=== PATIENT | male | born 1985 | race Caucasian/White ===

== ENCOUNTER 2017-07-27 15:48 | Emergency (ER) | payer OTHER ==
[2017-07-27] MEDS ORDERED: Diphtheria,Pertussis(Acell),Tetanus Vaccine 0.5 ML Syringe IM ONE (16:01)
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
[2017-07-27 17:35] VITALS: BP 111/77
== END 2017-07-27 17:22 | disposition home or self-care (01) ==
LOC: MW.ED 15:48
DX: S09.90XA Unspecified injury of head, initial encounter (principal); F17.210 Nicotine dependence, cigarettes, uncomplicated; Z88.5 Allergy status to narcotic agent; Z23 Encounter for immunization; V59.49XA Driver of pick-up truck or van injured in collision with other motor vehicles in traffic accident, initial encounter
CPT/HCPCS: 70450; 70450-26; 90471; 90715; 99283; 99284-25

== ENCOUNTER 2021-09-13 22:17 | Emergency (ER) | payer BC, OTHER ==
[2021-09-13] MEDS ORDERED: Sodium Chloride 0.9% 10 ML Syringe FLUSH PRN (22:18)
[2021-09-13] MEDS ORDERED: Sodium Chloride 0.9% 2.5 ML Syringe FLUSH PRN (22:18)
[2021-09-13] MEDS ORDERED: Lactated Ringers 1,000 ML IV STA (22:50)
[2021-09-13] MEDS ORDERED: Ketorolac 30 MG/ML SDV IVPUSH ONE (22:50)
[2021-09-13] MEDS ORDERED: Morphine 4 MG/ML VIAL IVPUSH ONE (22:50)
[2021-09-13 23:15] LABS: BLOOD UREA NITROGEN,BUN 13 mg/dL (7.0-18.0); CARBON DIOXIDE,CO2 22.8 mmol/L (21.0-32.0); CHLORIDE,CL 103 mmol/L (98-107); GLUCOSE RANDOM 143 mg/dL (74-106); LIPASE 60 U/L (73-393); POTASSIUM,K 3.6 mmol/L (3.5-5.1); SODIUM,NA 141 mmol/L (136-148)
--- NOTE | 2021-09-14 00:14 | CT ---
Indication: Right lower quadrant pain, history of stones Technique: Nonenhanced axial CT imaging through the abdomen and pelvis. Sagittal and coronal reconstructions are provided. Comparison: None Findings: There is a 6 mm irregular stone at the right ureteral vesicle junction. Mild hydroureteronephrosis and renal edema are consistent with urinary obstruction. At least three additional punctate nonobstructing stones are noted in the right renal collecting system. No renal stones are seen on the left. The left kidney is unremarkable. There is diffuse thickening of the urinary bladder wall. There is unremarkable noncontrast appearance of the liver, gallbladder, spleen, pancreas, and adrenal glands. There is normal caliber of the abdominal aorta. There is no abdominal lymphadenopathy. The stomach and duodenum are unremarkable. There is normal caliber of the small bowel. The appendix is noninflamed. A 3 mm metallic density is noted in the appendiceal lumen. There is no colonic wall thickening or mesenteric edema. Instrumented posterior spinal fusion is noted at L4-5 and L5-S1. The surgical hardware appears intact. Mature osseous fusion is noted across the disc spaces. The included lung bases are clear. Impression: 1. A 6 mm obstructing stone at the right ureterovesical junction. Mild hydroureteronephrosis and renal edema. 2. Additional punctate nonobstructing stones in the right renal collecting system. 3. Urinary bladder wall thickening. Correlate with urinalysis to exclude cystitis. 4. Incidental 3 mm metallic fragment in the appendix, unclear of ingested or postsurgical. Correlate clinically. Please note that all CT scans at this facility use dose modulation, iterative reconstruction, and/or weight-based dosing when appropriate to reduce radiation dose to as low as reasonably achievable. Dictated by Soraya Montanez MD @ 09/14/2021 12:12:41 AM (Electronically Signed)
[2021-09-14] MEDS ORDERED: traMADol 50 MG Tab PO ONE (02:20)
[2021-09-14] MEDS ORDERED: Tamsulosin 0.4 MG Cap.ER PO ONE (02:20)
--- NOTE | 2021-09-14 02:23 | EDM.PDOC ---
ED HPI GENERAL MEDICAL PROBLEM - General Chief Complaint: Abdominal Pain Stated Complaint: RT SIDE PAIN Time Seen by Provider: 09/13/21 22:38 - History of Present Illness INITIAL COMMENTS - FREE TEXT/NARRATIVE: CHIEF COMPLAINT(S): Abdominal pain HISTORY OF PRESENT ILLNESS: This is a 35-year-old man with a prior history of nephrolithiasis who comes to the emergency department with a chief complaint of abdominal pain. The patient states that prior to arrival he started to experience sudden onset right lower quadrant abdominal pain which he describes as sharp and rated 10 out of 10. He denies any back pain, dysuria or hematuria. He states he has a history of kidney stones but he is always had pain in his back and today he does not. He states that he has had some nausea and vomiting which was nonbloody and nonbilious. He denies any penile discharge or testicular pain. He states that he has never had this pain before. He does not have any relieving or aggravating factors. He denies any fevers or chills REVIEW OF SYSTEMS: Constitutional: Denies fever, chills. Eyes: Denies eye pain Ears, Nose, Mouth, & Throat: Denies earache Cardiovascular: Denies chest pain Respiratory: Denies shortness of breath Gastrointestinal: Positive for right lower quadrant abdominal pain. Denies diarrhea, hematochezia, melena, hematemesis, bilious emesis Genitourinary: Denies hematuria, dysuria, penile discharge, testicular pain Skin:Denies a rash MSK: Denies joint pain Neurological: Denies blurred vision Psychiatric: Denies depression PAST MEDICAL HISTORY: As per history of present illness and as reviewed below otherwise noncontributory. SURGICAL HISTORY: As per history of present illness and as reviewed below otherwise noncontributory. SOCIAL HISTORY: As per history of present illness and as reviewed below otherwise noncontributory. FAMILY HISTORY: As per history of present illness and as reviewed below otherwise noncontributory. EXAMINATION OF ORGAN SYSTEMS/BODY AREAS: Constitutional: Blood pressure is 123/88, heart rate 87, respiratory 20 with an oxygen saturation 96% on room air. Temperature 36.2 General: Young man who does appear to be in a moderate amount of pain who is unable to sit still Psychiatric: Appropriate mood and affect. Eyes: No scleral icterus or conjunctival erythema ENMT: Moist mucous membranes. No pharyngeal erythema Cardiovascular: Regular, rate, and rhythm. No gallops, murmurs, or rubs. Bilateral upper extremity pulses symmetric and intact. No peripheral edema. No JVD. Respiratory: Lungs clear to auscultation bilaterally. No wheezes, rales, or rhonchi. Gastrointestinal: Soft, nondistended, mild tenderness to palpation the right lower quadrant and suprapubic region. No rebound or guarding. Negative Galvan's and McBurney's. Normoactive bowel sounds Genitourinary: Mild suprapubic tenderness. No CVA tenderness Musculoskeletal: Normal range of motion. Skin: No lesions or abrasions. Neurological: Alert, GCS 15 MEDICAL DECISION MAKING AND COURSE IN THE ED WITH INTERPRETATION/REVIEW OF DIAGNOSTIC STUDIES: This is a 35-year-old man with a past medical history of nephrolithiasis who comes to the emergency department with sudden onset severe pain in the right lower quadrant who has evidence of suprapubic and right lower quadrant tenderness who is afebrile with otherwise normal vital signs. At this time I do suspect another kidney stone however differential does include appendicitis. Will obtain CT abdomen pelvis for further evaluation. We will provide the patient with Toradol, morphine and 1 L of lactated Ringer's bolus. Obtain labs including CBC, CMP, lipase and urinalysis. Given the possibility of surgical intervention we will obtain Covid swab even though the patient does not have any symptoms. The patient was amenable to this plan DDx: Nephrolithiasis, appendicitis Laboratory: CBC reveals a leukocytosis of 12.62 with normal indices. CMP is unremarkable. Lipase is normal. Urinalysis reveals hematuria otherwise unremarkable. COVID is negative. The radiological images were viewed by myself along with reading the report from the radiologist. CT abdomen pelvis without contrast reveals a 6 mm obstructing stone in the right UVJ with mild hydroureter nephrosis and renal edema. There are additional punctate nonobstructing stones in the right renal collecting system. There is urinary bladder wall thickening. There is a incidental 3 mm metallic fragment in the appendix unclear if ingested or post surgical. On reevaluation patient's pain was improved and patient was able to tolerate p.o. I did discuss the results with the patient at this time. In addition I did inquire about the metallic foreign body index. Patient states that he is never had surgery of the appendix and did not ingest any metallic fragment. Therefore as I I did discuss with him strict return precautions. I discussed the need to follow-up with urology within 1 week. He was amenable to discharge at this time and had no further questions DISPOSITION: The patient was discharged home in stable condition. The patient will follow up with neurology this week CONDITION: Fair PROCEDURES: None FINAL IMPRESSION(S)/DIAGNOSES: 1. Acute right obstructing nephrolithiasis 2. Acute foreign body appendix Benedicto Okeefe M.D. 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 Psychiatric History: Reports: None - Infectious Disease History Infectious Disease History: Reports: Chicken Pox - Past Surgical History Other Musculoskeletal Surgeries/Procedures:: back surgery 5 years ago Social & Family History - Family History Family Medical History: No Pertinent Family History - Tobacco Use Second Hand Smoke Exposure: No - Caffeine Use Caffeine Use: Reports: None - Recreational Drug Use Recreational Drug Use: No ED ROS GENERAL - Review of Systems Review Of Systems: See Below ED EXAM, GENERAL - Physical Exam Exam: See Below Course - Vital Signs Last Recorded V/S: Last Vital Signs Temp 36.2 C 09/13/21 22:44 Pulse 62 09/14/21 02:26 Resp 14 09/14/21 02:26 BP 115/81 09/14/21 02:26 Pulse Ox 97 09/14/21 02:26 - Orders/Labs/Meds Labs: Laboratory Tests 09/13/21 09/13/21 09/13/21 Range/Units 22:50 22:50 22:50 WBC 12.62 H (4.0-11.0) K/uL RBC 4.76 (4.50-5.90) M/uL Hgb 15.8 (13.0-17.0) g/dL Hct 44.6 (38.0-50.0) % MCV 93.7 (80.0-98.0) fL MCH 33.2 H (27.0-32.0) pg MCHC 35.4 (31.0-37.0) g/dL RDW Std Deviation 42.1 (28.0-62.0) fl RDW Coeff of Arthur 12 (11.0-15.0) % Plt Count 282 (150-400) K/uL MPV 11.20 (7.40-12.00) fL Neut % (Auto) 62.3 (48.0-80.0) % Lymph % (Auto) 26.2 (16.0-40.0) % [place] % (Auto) 8.9 (0.0-15.0) % Eos % (Auto) 2.0 (0.0-7.0) % Baso % (Auto) 0.6 (0.0-1.5) % Neut # (Auto) 7.9 H (1.4-5.7) K/uL Lymph # (Auto) 3.3 H (0.6-2.4) K/uL Gall[place] # (Auto) 1.1 H (0.0-0.8) K/uL Eos # (Auto) 0.3 (0.0-0.7) K/uL Baso # (Auto) 0.1 (0.0-0.1) K/uL Nucleated RBC % 0.0 /100WBC Nucleated RBCs # 0 K/uL Sodium 141 (136-148) mmol/L Potassium 3.6 (3.5-5.1) mmol/L Chloride 103 (98-107) mmol/L Carbon Dioxide 22.8 (21.0-32.0) mmol/L BUN 13 (7.0-18.0) mg/dL Creatinine 1.0 (0.8-1.3) mg/dL Est Cr Clr Drug Dosing 102.12 mL/min Estimated GFR (MDRD) > 60.0 ml/min Glucose 143 H (74-106) mg/dL Calcium 9.6 (8.5-10.1) mg/dL Total Bilirubin 0.9 (0.2-1.0) mg/dL AST 24 (15-37) IU/L ALT 24 (14-63) IU/L Alkaline Phosphatase 77 (46-116) U/L Total Protein 7.4 (6.4-8.2) g/dL Albumin 4.3 (3.4-5.0) g/dL Globulin 3.1 (2.6-4.0) g/dL Albumin/Globulin Ratio 1.4 (0.9-1.6) Lipase 60 L (73-393) U/L Urine Color Urine Appearance Urine pH (5.0-8.0) Ur Specific [place] (1.001-1.035) Urine Protein (NEGATIVE) mg/dL Urine Glucose (UA) (NEGATIVE) mg/dL Urine Ketones (NEGATIVE) mg/dL Urine Occult Blood (NEGATIVE) Urine Nitrite (NEGATIVE) Urine Bilirubin (NEGATIVE) Urine Urobilinogen (<2.0) EU/dL Ur Leukocyte Esterase (NEGATIVE) Urine RBC (0-2/HPF) Urine WBC (0-5/HPF) Ur Epithelial Cells (NONE-FEW) Urine Bacteria (NEGATIVE) Urine Mucus (NONE-MOD) SARS-CoV-2 RNA (NAZANIN) NEGATIVE (NEGATIVE) 09/14/21 Range/Units 01:00 WBC (4.0-11.0) K/uL RBC (4.50-5.90) M/uL Hgb (13.0-17.0) g/dL Hct (38.0-50.0) % MCV (80.0-98.0) fL MCH (27.0-32.0) pg MCHC (31.0-37.0) g/dL RDW Std Deviation (28.0-62.0) fl RDW Coeff of Arthur (11.0-15.0) % Plt Count (150-400) K/uL MPV (7.40-12.00) fL Neut % (Auto) (48.0-80.0) % Lymph % (Auto) (16.0-40.0) % [place] % (Auto) (0.0-15.0) % Eos % (Auto) (0.0-7.0) % Baso % (Auto) (0.0-1.5) % Neut # (Auto) (1.4-5.7) K/uL Lymph # (Auto) (0.6-2.4) K/uL [place] # (Auto) (0.0-0.8) K/uL Eos # (Auto) (0.0-0.7) K/uL Baso # (Auto) (0.0-0.1) K/uL Nucleated RBC % /100WBC Nucleated RBCs # K/uL Sodium (136-148) mmol/L Potassium (3.5-5.1) mmol/L Chloride (98-107) mmol/L Carbon Dioxide (21.0-32.0) mmol/L BUN (7.0-18.0) mg/dL Creatinine (0.8-1.3) mg/dL Est Cr Clr Drug Dosing mL/min Estimated GFR (MDRD) ml/min Glucose (74-106) mg/dL Calcium (8.5-10.1) mg/dL Total Bilirubin (0.2-1.0) mg/dL AST (15-37) IU/L ALT (14-63) IU/L Alkaline Phosphatase (46-116) U/L Total Protein (6.4-8.2) g/dL Albumin (3.4-5.0) g/dL Globulin (2.6-4.0) g/dL Albumin/Globulin Ratio (0.9-1.6) Lipase (73-393) U/L Urine Color YELLOW Urine Appearance SLT CLOUDY Urine pH 6.0 (5.0-8.0) Ur Specific [place] 1.025 (1.001-1.035) Urine Protein TRACE H (NEGATIVE) mg/dL Urine Glucose (UA) NEGATIVE (NEGATIVE) mg/dL Urine Ketones >=80 (NEGATIVE) mg/dL Urine Occult Blood LARGE H (NEGATIVE) Urine Nitrite NEGATIVE (NEGATIVE) Urine Bilirubin NEGATIVE (NEGATIVE) Urine Urobilinogen 0.2 (<2.0) EU/dL Ur Leukocyte Esterase NEGATIVE (NEGATIVE) Urine RBC 10-15 (0-2/HPF) Urine WBC 0-3 (0-5/HPF) Ur Epithelial Cells RARE (NONE-FEW) Urine Bacteria FEW (NEGATIVE) Urine Mucus LIGHT (NONE-MOD) SARS-CoV-2 RNA (NAZANIN) (NEGATIVE) Meds: Medications Discontinued Medications Generic Name Dose Route Start Last Admin Trade Name Freq PRN Reason Stop Dose Admin Lactated Ringer's 1,000 mls @ 999 mls/hr 09/13/21 22:50 09/13/21 22:57 Ringers, Lactated IV 09/13/21 23:50 999 mls/hr STAT STA Administration Ketorolac Tromethamine 30 mg 09/13/21 22:50 09/13/21 22:58 Ketorolac 30 Mg/Ml Sdv IVPUSH 09/13/21 22:51 30 mg ONETIME ONE Administration Morphine Sulfate 4 mg 09/13/21 22:50 09/13/21 22:59 Morphine 4 Mg/Ml Vial IVPUSH 09/13/21 22:51 4 mg ONETIME ONE Administration Sodium Chloride 10 ml 09/13/21 22:18 Sodium Chloride 0.9% 10 Ml Syringe FLUSH ASDIRECTED PRN Keep Vein Open Sodium Chloride 2.5 ml 09/13/21 22:18 Sodium Chloride 0.9% 2.5 Ml Syringe FLUSH ASDIRECTED PRN Keep Vein Open Tamsulosin HCl 0.4 mg 09/14/21 02:20 09/14/21 02:24 Tamsulosin 0.4 Mg Cap.Er PO 09/14/21 02:21 0.4 mg ONETIME ONE Administration Tramadol HCl 50 mg 09/14/21 02:20 09/14/21 02:24 Tramadol 50 Mg Tab PO 09/14/21 02:21 50 mg ONETIME ONE Administration Departure - Departure Time of Disposition: 02:22 Disposition: Home, Self-Care 01 Condition: Fair Clinical Impression: Kidney stone on right side - Discharge Information *PRESCRIPTION DRUG MONITORING PROGRAM REVIEWED*: No *COPY OF PRESCRIPTION DRUG MONITORING REPORT IN PATIENT HERB: No Prescriptions: Tamsulosin [Tamsulosin 24 Hr] 0.4 mg PO DAILY #14 cap.er traMADol [Ultram] 50 mg PO Q6H PRN #12 tab PRN Reason: Pain (Severe 7-10) Instructions: Kidney Stones, [id number], Dietary Guidelines to Help Prevent Kidney Stones Referrals: Cortez Philip MD [Primary Care Provider] - Forms: ED Department Discharge Additional Instructions: Your evaluated today on an emergent basis. At this time you do have evidence of a 6 mm kidney stone located near your bladder on the right side. There are signs of obstruction however there is no evidence of any infection. At this time I recommend the following pain regimen as described below in addition to tramadol 50 mg 4 times a day as needed for severe pain. Please take Flomax 0.4 mg once a day and call urology for an appointment within the week. As discussed if you have any worsening pain or symptoms please return to the emergency department. These also include fever and nausea and vomiting. In addition your CT did show a metallic object in your appendix it is uncertain as to what this is however if you have worsening pain in that right lower quadrant and you have passed the stone I would return to the emergency department. Please use: Tylenol 500-1000mg every 6 hours (DO NOT TAKE MORE THAN 4000mg in 1 day) Ibuprofen 400mg every 6 hours (Take with food as it can cause ulcers, GI upset) Example schedule: 8:00 AM (Tylenol 500-1000mg) 11:00 AM (Ibuprofen 400mg) 2:00 PM (Tylenol 500-1000mg) 5:00 PM (Ibuprofen 400mg) [facility] [place] [phone] *When you call for an appointment say "I was seen in the ER in [place] and I have a kidney stone and need follow up this week." The patient is informed of any results of their evaluation and diagnostic workup and all questions are answered. They are given discharge instructions and return precautions. The patient is stable for discharge. The patient states they understand and agree with the plan and that they will return if their symptoms get worse or if they have any new concerns. The following information is given to patients seen in the emergency department who are being discharged to home. This information is to outline your options for follow-up care. We provide all patients seen in our emergency department with a follow-up referral. The need for follow-up, as well as the timing and circumstances, are variable depending upon the specifics of your emergency department visit. If you don't have a primary care physician on staff, we will provide you with a referral. We always advise you to contact your personal physician following an emergency department visit to inform them of the circumstance of the visit and for follow-up with them and/or the need for any referrals to a consulting specialist. The emergency department will also refer you to a specialist when appropriate. This referral assures that you have the opportunity for follow-up care with a specialist. All of these measure are taken in an effort to provide you with optimal care, which includes your follow-up. Under all circumstances we always encourage you to contact your private physician who remains a resource for coordinating your care. When calling for follow-up care, please make the office aware that this follow-up is from your recent emergency room visit. If for any reason you are refused follow-up, please contact the [facility] Emergency Department at and asked to speak to the emergency department charge nurse. Sepsis Event Note (ED) - Evaluation Sepsis Screening Result: No Definite Risk
[2021-09-14 02:27] VITALS: BP 115/81; PULSE 62
== END 2021-09-14 02:40 | disposition home or self-care (01) ==
LOC: MW.ED 22:17
DX: N20.0 Calculus of kidney (principal); T18.4XXA Foreign body in colon, initial encounter; Z88.5 Allergy status to narcotic agent; Z79.899 Other long term (current) drug therapy; Z20.822 Contact with and (suspected) exposure to COVID-19
CPT/HCPCS: 36415; 74176; 80053; 81001; 83690; 85025; 87635; 96374; 96375; 99284; A9270; J1885; J2270; J7120; U0002

== ENCOUNTER 2024-08-08 21:59 | Emergency (ER) | payer BC ==
[2024-08-08 22:22] LABS: BASOPHILS PERCENT AUTO 0.9 % (0.0-1.0); EOSINOPHILS ABSOLUTE AUTO 0.26 K/uL (0.00-0.45); EOSINOPHILS PERCENT AUTO 2.3 % (0.0-6.0); HEMOGLOBIN 15.1 g/dL (14.0-18.0); IMMATURE GRAN ABSOLUTE AUTO 0.03 K/uL (0.00-0.05); IMMATURE GRAN PERCENT AUTO 0.3 % (0.0-0.4); LYMPHOCYTES ABSOLUTE AUTO 2.86 K/uL (1.00-4.80); MEAN CORPUSCULAR HEMOGLOBIN 32.6 pg (28.0-32.0); MEAN CORPUSCULAR HGB CONC 35.1 g/dL (32.0-36.0); MEAN CORPUSCULAR VOLUME 92.9 fL (83.0-99.0); MEAN PLATELET VOLUME 10.6 fL (9.4-12.4); MONOCYTES ABSOLUTE AUTO 0.72 K/uL (0.00-0.80); MONOCYTES PERCENT AUTO 6.3 % (0.0-8.0); NEUTROPHILS ABSOLUTE AUTO 7.45 K/uL (1.80-7.70); NEUTROPHILS PERCENT AUTO 65.2 % (41.0-71.0); PLATELET COUNT,PLT 287 K/uL (150-400); RED BLOOD CELL COUNT 4.63 M/uL (4.52-5.90); WHITE BLOOD CELL COUNT,WBC 11.42 K/uL (3.9-11.3)
[2024-08-08 22:52] LABS: CALCIUM 8.7 mg/dL (8.5-10.1); CARBON DIOXIDE,CO2 25.6 mmol/L (21.0-32.0); CREATININE 0.8 mg/dL (0.8-1.3); POTASSIUM,K 3.7 mmol/L (3.5-5.1)
[2024-08-09 02:30] VITALS: BP 122/84; PULSE 66
== END 2024-08-09 02:30 | disposition home or self-care (01) ==
LOC: MW.ED 21:59
DX: R07.9 Chest pain, unspecified (principal); F17.210 Nicotine dependence, cigarettes, uncomplicated; Z88.8 Allergy status to other drugs, medicaments and biological substances
CPT/HCPCS: 36415; 71046; 71046-26; 80048; 84484; 85025; 93005; 99285